=== PATIENT | male | born 1980 | race Hispanic/Latino ===

== ENCOUNTER 2025-02-22 13:57 | Emergency (ER) | payer SELFPAY ==
[2025-02-22 13:58] VITALS: BP 110/65; PULSE 82; RESP 16; TEMP 36.6; O2SAT 98
[2025-02-22 15:05] VITALS: BP 110/72; PULSE 71; RESP 14; O2SAT 100; BMI 26.6
--- NOTE | 2025-02-22 15:26 | CT_ITS ---
PROCEDURE: BRAIN/HEAD WITHOUT CONTRAST 02/22/2025 REASON FOR EXAM: DIZZY TECHNIQUE: Procedure Code: CTBR Modality: CT Procedure: BRAIN/HEAD WITHOUT CONTRAST Coronal and Sagittal reconstruction series were provided. One or more dose reduction techniques were used (e.g., Automated exposure control, adjustment of the mA and/or kV according to patient size, use of iterative reconstruction technique. FINDINGS: No acute intracranial hemorrhage. No midline shift. The ventricles are normal in size and configuration. No extra-axial fluid collection is identified. A coarse calcification is noted within the right basal ganglia, likely benign. 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 No fracture. The calvarium is intact. The visualized paranasal sinuses and mastoid air cells are clear. CT/Brain/Head without Contrast IMPRESSION: No CT evidence of an acute intracranial abnormality. Reading Location: [id number]
--- NOTE | 2025-02-22 15:27 | RAD_ITS ---
PROCEDURE: CHEST PA AND LATERAL 02/22/2025 REASON FOR EXAM: CHEST PAIN TECHNIQUE: Procedure Code: RADCXR Modality: DX Procedure: CHEST PA AND LATERAL COMPARISON: None. FINDINGS: LUNGS AND PLEURA: Mild peribronchiolar wall thickening bilaterally. No focal airspace consolidation. No pleural effusion or pneumothorax. HEART AND MEDIASTINUM: The heart size and mediastinal contours are normal. BONES: No acute osseous abnormality.
--- NOTE | 2025-02-22 15:27 | EDS_ITS ---
HPI History of Present Illness Chief Complaint: Dizziness Detail of Chief Complaint: Dizziness at work and then developed chest discomfort. Lasted a minute. Informant: patient Onset/Context/Timing Onset: Today Activity at onset: sudden Timing: Intermittent Quality: Positive for Pain Location: Substernal Current Severity: Gone Maximum Severity: Mild Worsened By: Nothing Relieved By: Nothing Associated Symptoms: Negative for Nausea, Vomiting, Diaphoresis, Dyspnea, Cough, Fever, Lightheadedness, Acid Reflux or Palpitations Narrative Narrative: 44-year-old speaking male who reportedly has no past medical history currently is on no medications and denies any allergies. He was at work he said he had a sudden onset of dizziness which he describes as lightheadedness and chest discomfort that was midsternal lasted maybe a minute. Denies any recent exertional dyspnea or exertional chest pain. He has no cardiac history. Currently his symptoms have resolved.He denies any family history. He is a non- smoker. Prior Similar Symptoms: No Recent Illness/Hospitalization: No CVD Risk Factors: Negative for Hypertension, Diabetes, Hypercholesterolemia, Family History 1' </=55 or Smoking PE Risk Factors: Negative for Recent Travel/Surgery, Recent Immobilization, Prior DVT or PE, Cancer or OCP + Smoking + >/=35 TAD Risk Factors: Negative for Marfan's Syndrome PFSH PFSH Medical History no medical history no medical history Home Medications ?Medication ?Instructions ?Recorded ?Last Taken ?Type NK 02/22/25 Unknown History Allergy/AdvReac Type Severity Reaction Status Date / Time No Known Allergies Allergy Verified 02/22/25 14:02 Surgical History no surgical history Social History Smoking Status: Unknown if ever smoked ROS ROS ED ROS Narrative Patient denies recent illness. Constitutional Constitutional ED: Denies chills or fever(s) Eyes Eyes: Reports none ENT ENT ED: Denies ear pain Cardiovascular Cardiovascular: Reports chest pain; Denies palpitations or racing heartbeat Respiratory/Chest Respiratory/Chest: Denies cough or dyspnea Gastrointestinal Gastrointestinal: Denies abdominal pain Genitourinary Genitourinary ED: Denies dysuria or hematuria Musculoskeletal Musculoskeletal: Denies arthralgias Integumentary Denies abscess Neurologic Neurologic: Denies headache(s) Psychiatric Psychiatric: Denies anxiety or depression Endocrine Endocrinology: Denies cold intolerance Hematologic/Lymphatic Hematologic/Lymphatic: Denies easy bleeding, easy bruising or lymphadenopathy Allergic/Immunologic Allergic/Immunologic ED: Denies mouth swelling, tongue swelling or urticaria EXAM Physical Exam Narrative Exam Narrative: Well-appearing 44-year-old male. Vital signs stable afebrile. He does not look septic toxic he is in no distress. Coworker at bedside. H EENT exam pupils round react light. Extract motions are intact. No facial droop. Normal speech. Neck nontender no JVD. Lungs clear to auscultation bilaterally. Heart regular rhythm rate about 80 no murmur. Chest wall ribs nontender. Abdomen soft nontender. No peritoneal signs. Moving all 4 extremities. 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 Dorsi plantarflexion intact. No drift of either upper or lower extremities. Tip to nose within normal limits. Neurologic exam normal. NIH is 0. Back exam nontender. Const Vital Signs: 02/22/25 13:58 02/22/25 15:05 02/22/25 15:36 Temperature 98 F Temperature Source Oral Pulse Rate 82 71 Respiratory Rate 16 14 Blood Pressure 110/65 110/72 Blood Pressure Mean 80 84 Pulse Ox 98 100 Oxygen Delivery Method Room Air Room Air 02/22/25 16:05 02/22/25 16:31 Temperature Temperature Source Pulse Rate 85 Respiratory Rate 16 Blood Pressure 104/64 121/76 H Blood Pressure Mean 77 91 Pulse Ox 100 Oxygen Delivery Method Room Air Heart Score History: Slightly/Non-Suspicious ECG: Normal Age: </= 45 years Risk Factors: No Risk Factors Troponin: </= Normal Limit Score: 0 MDM MDM MDM Narrative Medical decision making narrative: 44-year-old male with lightheadedness and chest discomfort both were brief lasting less than a minute. Exam is benign. Undergo a cardiac workup with a CT of his brain. But currently there is no acute findings on exam he has a normal neurologic exam. Repeat exam patient is doing well at 6 PM. 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 He will be ambulated and he does well be discharged home. Chest pain uncertain etiology. History & Record Review Discussion w/independent historian: Patient Additional record(s) reviewed:: No prior records Lab Data Attestation: I reviewed the patient's lab results. Lab results narrative: CBC normal. White count 6 H&H 14 and 44. Platelets 309. Electrolytes show gap 11. Normal BUN of 12 creatinine 1.2. Glucose 123. Initial troponin 7. 2-hour troponin less than 6. Chest x-ray unremarkable. EKG normal. Labs: Laboratory Results - last 24 hr 02/22/25 02/22/25 02/22/25 13:50 13:59 16:30 WBC 6.8 RBC 5.19 Hgb 14.8 Hct 44.2 MCV 85.2 MCH 28.5 MCHC 33.5 RDW Std Deviation 39.5 RDW Coeff of Monique 12.8 Plt Count 309 MPV 9.8 Immature Gran % (Auto) 0.300 Neut % (Auto) 40.2 L Lymph % (Auto) 47.4 H Coleman % (Auto) 8.7 Eos % (Auto) 2.8 Baso % (Auto) 0.6 Absolute Neuts (auto) 2.7 Absolute Lymphs (auto) 3.22 Nucleated RBC % 0 Sodium 141 Potassium 3.3 Chloride 104 Carbon Dioxide 26.1 Anion Gap 11 BUN 12 Creatinine 1.20 Estim Creat Clear Calc 76.84 Est GFR (MDRD) Non-Af 76 BUN/Creatinine Ratio 9.9 L Glucose 123 H Calcium 9.0 Troponin T High Sens 7 Troponin T Hi Sens 2 Hr < 6 POC Glucose 125 H Radiography Chest X-Ray - ED: Read by ED Physician, Read by Radiologist, Normal, Heart, Lungs, Mediastinum, Bony Structures, No Acute Disease and Chronic Changes Diagnostic Testing: Clinical Impression(s) from Imaging Studies Brain CT 02/22/25 15:26 IMPRESSION: No CT evidence of an acute intracranial abnormality. Reading Location: [id number] Chest X-Ray 02/22/25 15:27 IMPRESSION: Mild bilateral peribronchiolar thickening, can be seen with interstitial edema or small airways disease. Reading Location: [id number] Chest x-ray, 2 views, AP and lateral, interpreted both myself and the radiologist shows no acute abnormality. Normal lung yoon. Normal cardiac silhouette. Rhythm Strip Rhythm Strip: Sinus Rhythm Rate: 75 Ectopy: None EKG Initial EKG: Attestation: I personally reviewed and interpreted this EKG as follows: Interpretation: Sinus Rhythm and No Acute Injury Pattern Comments: Normal sinus rhythm rate of 75 no acute signs of RI nor ischemia nor dysrhythmia. Discharge Plan Triage Chief Complaint: Dizziness ED Provider: Jay Felix Dx/Rx/DC Orders Clinical Impression: Chest pain of uncertain etiology, Dizziness Instructions: ED Chest Pain, Uncertain Cause, ED Dizziness, Uncertain Cause Prescriptions: No Action NK Primary Care Provider: Care Physician,No Primary Referrals: NOT,DEFINED [Non-Staff, None] Kristina S[facility], [facility] - As soon as possible Activity Restrictions/Additional Instructions: Your physical exam, chest x-ray, EKG and CAT scan all look good today. All your lab work looked good. We do not have a specific cause for your symptoms. Follow-up with the [facility]. Return if you are feeling worse. Print Language: Wolof Disposition Disposition: Home, Self Care
--- NOTE | 2025-02-22 15:27 | EKG12_ITS ---
Test Reason : Blood Pressure : */* mmHG Vent. Rate : 75 BPM Atrial Rate : 75 BPM P-R Int : 138 ms QRS Dur : 98 ms QT Int : 386 ms P-R-T Axes : 14 59 29 degrees QTcB Int : 431 ms Normal sinus rhythm Normal ECG Confirmed by DIRK HAYES, LUANN ([id number]), technical editor CHRISTOPHER LITTLE ([id number]) on 02/25/2025 1:28:55 PM Referred By: Confirmed By: LUANN CAVAZOS MD
[2025-02-22 15:48] LABS: Hematocrit 44.2 % (40-54); Hemoglobin 14.8 g/dL (13.0-16.5); Immature Granulocytes Count 0.020 X10^3/uL (0.0-0.0); Mean Corp Hgb Conc 33.5 g/dL (32-36); Mean Corpuscular Volume 85.2 fL (80-94); Mean Platelet Vol. 9.8 fl (6.2-12.0); NRBC Flagged by Analyzer 0 % (0-5); Platelet Count 309 K/mm3 (150-450); RBC Distribution Width CV 12.8 % (11.6-14.6); RBC Distribution Width SD 39.5 fl (35.1-43.9); Red Blood Count 5.19 M/mm3 (4.6-6.2); White Blood Count 6.8 K/mm3 (4.4-11.0)
[2025-02-22 16:05] VITALS: BP 104/64; PULSE 85; RESP 16; O2SAT 100
[2025-02-22 16:05] LABS: Anion Gap 11 (5-15); BUN 12 mg/dL (4-19); BUN/Creat Ratio 9.9 RATIO (10-20); Calcium,Total 9.0 mg/dL (7.6-11.0); Carbon Dioxide 26.1 mmol/L (21.0-32.0); Chloride 104 mmol/L (98-108); Estimated Creatinine Clearance 76.84 ml/min (50-250); Glucose 123 mg/dL (70-99); Potassium 3.3 mmol/L (3.3-5.1); Troponin T High Sensitivity 7 ng/L (<=22)
[2025-02-22 16:31] VITALS: BP 121/76
[2025-02-22 17:10] LABS: Troponin T High Sens 2 HR < 6 ng/L (<=22)
[2025-02-22 18:18] VITALS: BP 124/82; PULSE 92; RESP 18; O2SAT 100
== END 2025-02-22 18:20 | disposition home or self-care (01) ==
PROVIDERS: Emergency Provider Emergency Medicine; Visit Provider Emergency Medicine
DX: R07.9 Chest pain, unspecified (principal); R42 Dizziness and giddiness
CPT/HCPCS: 70450; 71046; 80048; 82962; 84484; 85025; 93005; 99285; A4216